=== PATIENT | female | born 1950 | race Caucasian/White ===

== ENCOUNTER → 2022-02-27 | Outpatient (CLI) | payer MEDICARE, MEDICAID | END | disposition home or self-care (01) | LOC: RADPV 13:36 | PROVIDERS: ATTEND Internal Medicine | DX: Z13.820 Encounter for screening for osteoporosis (principal); M81.0 Age-related osteoporosis without current pathological fracture; G80.0 Spastic quadriplegic cerebral palsy | CPT/HCPCS: 77080 ==

== ENCOUNTER → 2022-10-06 | Outpatient (CLI) | payer MEDICARE, MEDICAID | END | disposition home or self-care (01) | LOC: RADMN 09:41 | PROVIDERS: ATTEND Internal Medicine Pulmonary Disease | DX: J32.0 Chronic maxillary sinusitis (principal); J32.3 Chronic sphenoidal sinusitis; J32.1 Chronic frontal sinusitis; G93.89 Other specified disorders of brain | CPT/HCPCS: 70486 ==

== ENCOUNTER 2023-01-06 12:30 | Day surgery (SDC) | payer MEDICARE, MEDICAID ==
[~2023-01-06] VITALS: Ht 152.4 cm; Wt 57.2 kg
[~2023-01-06 12:30] MED LIST: LIDOCAINE/PF 2% 5 ML VIAL IM ONE; PROPOFOL 1% 20 ML VIAL IVP ONE; SODIUM CHLORIDE 0.9% 1,000 ML IV ONE; SODIUM CHLORIDE 0.9% 1,000 ML ONE
== END 2023-01-06 15:35 | disposition home or self-care (01) ==
LOC: SURGERY 12:30
PROVIDERS: ATTEND Internal Medicine Gastroenterology
DX: D50.9 Iron deficiency anemia, unspecified (principal); R11.10 Vomiting, unspecified; R05.9 Cough, unspecified; Z88.8 Allergy status to other drugs, medicaments and biological substances; Z88.0 Allergy status to penicillin; Z88.2 Allergy status to sulfonamides; G80.8 Other cerebral palsy; K21.9 Gastro-esophageal reflux disease without esophagitis; Z98.890 Other specified postprocedural states; Z79.899 Other long term (current) drug therapy; G80.9 Cerebral palsy, unspecified
CPT/HCPCS: 45378; 43235; J2704; J3490; J7030; 88300

== ENCOUNTER 2023-12-20 15:06 | Inpatient (IN) | payer MEDICARE, OTHER ==
[~2023-12-20] VITALS: Ht 121.9 cm; Wt 61.6 kg
[~2023-12-20 15:06] MED LIST changes: +ACET-2247 GT; +ACET650S24 PR; +BISA-186 PR; +BUDE0.5A NEB; +CHOL25TA4 GT; +DENO60DI SQ; +FLUT16SP NASAL; +GUAIF10 PO; +LACT10SO10 GT; +LEVAHFA IH; +LEVE100S7 GT; +LEVO150 GT; -LIDOCAINE/PF 2% 5 ML VIAL IM ONE; +LORA10TA7 GT; +METO-296 GT; +MONT-35 GT; +MULT-1303 GT; +NA P133E8 PR; +NUTR250L67 GT; +OMEP20 GT; +PRAV40TA4 GT; -PROPOFOL 1% 20 ML VIAL IVP ONE; +PROT1PAC2 GT; -SODIUM CHLORIDE 0.9% 1,000 ML IV ONE; -SODIUM CHLORIDE 0.9% 1,000 ML ONE; +XALA2.5OS OU
[2023-12-20] MEDS ORDERED: ZOLPIDEM TARTRATE 5 MG TABLET PO PRN (16:00)
[2023-12-20] MEDS ORDERED: BISACODYL 10 MG RECTAL RECTAL SUPPOSITORY PR PRN (16:00)
[2023-12-20] MEDS ORDERED: ONDANSETRON HCL 4 MG/2 ML VIAL IVP PRN (16:00)
[2023-12-20] MEDS ORDERED: MAGNESIUM HYDROXIDE SUSPENSION 30 ML UDCUP PO PRN (16:00)
[2023-12-20] MEDS ORDERED: ACETAMINOPHEN 325 MG TABLET PO PRN (16:00)
[2023-12-20] MEDS ORDERED: MORPHINE SULFATE 2 MG/ML SYRINGE IVP PRN (16:00)
[2023-12-20] MEDS ORDERED: HYDROCODONE/ACETAMINOPHEN 5-325 MG TABLET PO PRN (16:00)
[2023-12-20] MEDS ORDERED: LEVA1.2542 NEB (16:16)
[2023-12-20 16:30] LABS: BASOPHILS % (AUTO) 0.3 % (0.0-2.0); HEMATOCRIT 37.1 % (36-46); HEMOGLOBIN 12.2 g/dL (12.0-16.0); LYMPHOCYTES # (AUTO) 0.7 K/uL (1.0-4.8); LYMPHOCYTES % (AUTO) 13.2 % (22.0-44.0); MEAN CORPUSCULAR HEMOGLOBIN 30.9 pg (26.0-34.0); MEAN CORPUSCULAR HGB CONC 32.9 G/dL (31.0-37.0); MEAN CORPUSCULAR VOLUME 94 fL (80-100); MONOCYTES # (AUTO) 0.6 K/uL (0.1-1.0); MONOCYTES % (AUTO) 10.8 % (2.0-9.0); NEUTROPHILS # (AUTO) 3.9 K/uL (1.8-7.7); NEUTROPHILS % (AUTO) 72.7 % (40.0-70.0); PLATELET COUNT (AUTO) 218 K/uL (150-450); RED BLOOD CELL COUNT(AUTO) 3.95 MIL/uL (4.00-5.20); RED CELL DISTRIBUTION WIDTH 13.3 % (11.5-14.5); WHITE BLOOD COUNT (AUTO) 5.4 K/uL (4.5-11.0)
[2023-12-20] MEDS: LevETIRAcetam 1,000 MG in DEXTROSE 5%-WATER 100 ML IV SCH (16:33)
[2023-12-20 16:39] LABS: ANION GAP 4 mmol/L (8-16); CALCIUM, TOTAL 10.1 mg/dL (8.8-10.5); CARBON DIOXIDE 34 mmol/L (22-29); CHLORIDE 100 mmol/L (98-107); CREATININE 0.31 mg/dL (0.60-1.30); GLOMERULAR FILTR. RATE CALC > 60 mL/min (>60); GLUCOSE,RANDOM 84 mg/dL (70-110); SODIUM SERUM 138 mmol/L (136-145); UREA NITROGEN, BLOOD 18 mg/dL (7-18)
[2023-12-20 16:42] LABS: COVID AG,FIA SOURCE NASAL SWAB
[2023-12-20 16:48] LABS: TROPONIN I-HIGH SENSITIVITY Less Than 4 ng/L (<51)
[2023-12-20 16:56] LABS: B-TYPE NATRIURETIC PEPTIDE 6 pg/mL (0-100)
[2023-12-20 17:18] LABS: SARS-COV2 (COVID) ANTIGEN,FIA Negative (Negative)
[2023-12-20 19:20] VITALS: BP 127/79; PULSE 83; RESP 18; TEMP 98.1
[2023-12-20 19:52] VITALS: BP 130/82; PULSE 73; RESP 18; TEMP 98.1
[2023-12-20] MEDS: DOCUSATE SODIUM 100 MG CAPSULE PO SCH (21:00)
[2023-12-20] MEDS ORDERED: SODIUM CHLORIDE 0.9% 1,000 ML IV SCH (22:45)
[2023-12-20] MEDS: SODIUM CHLORIDE 0.9% 1,000 ML IV SCH (23:18)
[2023-12-21 04:12] VITALS: BP 131/64; PULSE 75; RESP 18; TEMP 98.2
[2023-12-21 07:19] LABS: BASOPHILS % (AUTO) 0.3 % (0.0-2.0); EOSINOPHILS % (AUTO) 4.6 % (1.0-6.0); HEMATOCRIT 33.8 % (36-46); HEMOGLOBIN 11.3 g/dL (12.0-16.0); LYMPHOCYTES # (AUTO) 1.1 K/uL (1.0-4.8); LYMPHOCYTES % (AUTO) 17.2 % (22.0-44.0); MEAN CORPUSCULAR HEMOGLOBIN 31.3 pg (26.0-34.0); MEAN CORPUSCULAR HGB CONC 33.4 G/dL (31.0-37.0); MEAN CORPUSCULAR VOLUME 94 fL (80-100); MONOCYTES # (AUTO) 0.8 K/uL (0.1-1.0); MONOCYTES % (AUTO) 11.7 % (2.0-9.0); NEUTROPHILS # (AUTO) 4.3 K/uL (1.8-7.7); NEUTROPHILS % (AUTO) 66.2 % (40.0-70.0); RED CELL DISTRIBUTION WIDTH 13.5 % (11.5-14.5); WHITE BLOOD COUNT (AUTO) 6.5 K/uL (4.5-11.0)
[2023-12-21 07:37] LABS: ANION GAP 6 mmol/L (8-16); CARBON DIOXIDE 30 mmol/L (22-29); CHLORIDE 102 mmol/L (98-107); CREATININE 0.28 mg/dL (0.60-1.30); GLUCOSE,RANDOM 91 mg/dL (70-110); POTASSIUM 4.1 mmol/L (3.5-5.1); SODIUM SERUM 138 mmol/L (136-145); UREA NITROGEN, BLOOD 13 mg/dL (7-18)
[2023-12-21 07:38] LABS: CALCIUM, TOTAL 9.2 mg/dL (8.8-10.5); GLOMERULAR FILTR. RATE CALC > 60 mL/min (>60)
[2023-12-21 08:10] VITALS: BP 128/68; PULSE 76; RESP 18; TEMP 98
[2023-12-21 08:38] LABS: PLATELET COUNT (AUTO) 179 K/uL (150-450)
[2023-12-21] MEDS: PANTOPRAZOLE SODIUM 40 MG DR TABLET PO SCH (09:08)
[2023-12-21 15:28] VITALS: BP 132/70; PULSE 78; RESP 18; TEMP 98.7
== END 2023-12-21 20:45 | disposition home or self-care (01) | DRG 394 ==
LOC: EMS 15:06 → EDH 16:43 → 6S 17:10
PROVIDERS: ADMIT Internal Medicine; ATTEND Internal Medicine
DX: K94.23 Gastrostomy malfunction (principal); Z68.41 Body mass index [BMI] 40.0-44.9, adult; F03.90 Unspecified dementia, unspecified severity, without behavioral disturbance, psychotic disturbance, mood disturbance, and anxiety; E86.0 Dehydration; I10 Essential (primary) hypertension; R13.10 Dysphagia, unspecified; E78.5 Hyperlipidemia, unspecified; E66.01 Morbid (severe) obesity due to excess calories; Z20.822 Contact with and (suspected) exposure to COVID-19; R62.7 Adult failure to thrive; K21.9 Gastro-esophageal reflux disease without esophagitis; Y83.8 Other surgical procedures as the cause of abnormal reaction of the patient, or of later complication, without mention of misadventure at the time of the procedure; Y82.8 Other medical devices associated with adverse incidents; G40.909 Epilepsy, unspecified, not intractable, without status epilepticus; Y92.89 Other specified places as the place of occurrence of the external cause; Z88.0 Allergy status to penicillin; Z88.2 Allergy status to sulfonamides; Z88.3 Allergy status to other anti-infective agents; Z79.899 Other long term (current) drug therapy
CPT/HCPCS: 80048; 83880; 84484; 85025; 93005; 94799; 99285; J0712; J7030; J7060

== ENCOUNTER 2024-04-25 11:45 | Inpatient (IN) | payer MEDICARE, OTHER ==
[~2024-04-25] VITALS: Ht 154.9 cm; Wt 65.5 kg
[~2024-04-25 11:45] MED LIST changes: +GUAI100L96 PO; -GUAIF10 PO; +LEVA1.2542 NEB; -LEVAHFA IH
[2024-04-25 13:57] LABS: BASOPHILS % (AUTO) 0.3 % (0.0-2.0); EOSINOPHILS % (AUTO) 2.3 % (1.0-6.0); HEMATOCRIT 37.1 % (36-46); HEMOGLOBIN 12.3 g/dL (12.0-16.0); LYMPHOCYTES # (AUTO) 0.8 K/uL (1.0-4.8); MEAN CORPUSCULAR HEMOGLOBIN 30.6 pg (26.0-34.0); MEAN CORPUSCULAR HGB CONC 33.2 G/dL (31.0-37.0); MEAN CORPUSCULAR VOLUME 92 fL (80-100); MONOCYTES # (AUTO) 0.5 K/uL (0.1-1.0); MONOCYTES % (AUTO) 10.6 % (2.0-9.0); NEUTROPHILS # (AUTO) 3.5 K/uL (1.8-7.7); NEUTROPHILS % (AUTO) 70.8 % (40.0-70.0); PLATELET COUNT (AUTO) 212 K/uL (150-450); RED BLOOD CELL COUNT(AUTO) 4.02 MIL/uL (4.00-5.20); RED CELL DISTRIBUTION WIDTH 13.9 % (11.5-14.5)
[2024-04-25 14:02] LABS: ANION GAP 7 mmol/L (8-16); CALCIUM, TOTAL 9.1 mg/dL (8.8-10.5); CARBON DIOXIDE 31 mmol/L (22-29); CHLORIDE 98 mmol/L (98-107); CREATININE 0.23 mg/dL (0.60-1.30); GLOMERULAR FILTR. RATE CALC > 60 mL/min (>60); GLUCOSE,RANDOM 82 mg/dL (70-110); POTASSIUM 5.3 mmol/L (3.5-5.1); SODIUM SERUM 135 mmol/L (136-145); UREA NITROGEN, BLOOD 22 mg/dL (7-18)
[2024-04-25] MEDS ORDERED: HYDROCODONE/ACETAMINOPHEN 5-325 MG TABLET GT PRN (14:45)
[2024-04-25] MEDS ORDERED: BISACODYL 10 MG RECTAL RECTAL SUPPOSITORY PR PRN (14:45)
[2024-04-25] MEDS ORDERED: ONDANSETRON HCL 4 MG/2 ML VIAL IVP PRN (14:45)
[2024-04-25] MEDS ORDERED: MAGNESIUM HYDROXIDE SUSPENSION 30 ML UDCUP GT PRN (14:45)
[2024-04-25] MEDS ORDERED: ZOLPIDEM TARTRATE 5 MG TABLET GT PRN (14:45)
[2024-04-25] MEDS ORDERED: IPRATROPIUM BROMIDE 0.5 MG/2.5 ML NEB SOLUTION NEB PRN (14:45)
[2024-04-25] MEDS ORDERED: ALBUTEROL SULFATE 2.5 MG/0.5 ML NEB SOLUTION NEB PRN (14:45)
[2024-04-25] MEDS ORDERED: LACTULOSE 20 GM/30 ML SOLUTION UDCUP GT PRN (14:45)
[2024-04-25] MEDS ORDERED: ACETAMINOPHEN 650 MG/20.3 ML SOLUTION UDCUP GT PRN (15:00)
[2024-04-25 16:04] VITALS: BP 139/63; PULSE 83; RESP 19; TEMP 97.3
[2024-04-25] MEDS: HEPARIN SODIUM,PORCINE 5,000 UNITS/ML VIAL SQ SCH (16:47)
[2024-04-25 20:00] VITALS: BP 106/65; PULSE 87; RESP 18; TEMP 97.9; O2SAT 93
[2024-04-25] MEDS: METOCLOPRAMIDE HCL 10 MG TABLET GT SCH (21:00)
[2024-04-25] MEDS ORDERED: OMEPRAZOLE 20 MG CAPSULE GT SCH (21:00)
[2024-04-25] MEDS: LevETIRAcetam 100 MG/ML 5 ML SOLUTION UDCUP GT SCH (21:00)
[2024-04-25] MEDS: DOCUSATE SODIUM 100 MG/10 ML LIQUID UDCUP GT SCH (21:00)
[2024-04-25] MEDS: DEXTROSE 5%-0.45% SODIUM CHL 1,000 ML IV SCH (21:19)
[2024-04-25] MEDS: LATANOPROST 0.005% 2.5 ML OPHTHALMIC SOLUTION OU SCH (22:07)
[2024-04-25] MEDS: FLUTICASONE PROPIONATE 50 MCG/SPRAY 16 GM NASAL SPRAY NASAL SCH (22:07)
[2024-04-26 04:07] VITALS: BP 102/66; PULSE 88; RESP 18; TEMP 97.6; O2SAT 96
[2024-04-26 05:13] LABS: APPEARANCE,URINE HAZY (CLEAR); BILIRUBIN,URINE NEGATIVE (NEGATIVE); COLOR,URINE YELLOW (YELLOW); GLUCOSE, URINE (UA) NEGATIVE (NEGATIVE); KETONES,URINE NEGATIVE (NEGATIVE); LEUKOCYTE ESTERASE ,URINE SMALL (NEGATIVE); NITRATE,URINE NEGATIVE (NEGATIVE); OCCULT BLOOD,URINE NEGATIVE (NEGATIVE); PH,URINE 8.5 (5.0-8.0); PROTEIN,URINE 30-70 mg/dL (NEGATIVE); SPECIFIC GRAVITIY, URINE 1.023 (1.003-1.030); UROBILINOGEN,URINE <=1.0 mg/dL (<=1.0)
[2024-04-26 05:20] LABS: BACTERIA,URINE Few /HPF (None Seen); SQUAMOUS EPITHELIAL CELL,UR Few /LPF (None Seen); WBC,URINE None Seen /HPF (0-5)
[2024-04-26] MEDS: LEVOTHYROXINE SODIUM 150 MCG TABLET GT SCH (06:30)
[2024-04-26 08:00] VITALS: BP 94/59; PULSE 59; RESP 18; TEMP 97.5; O2SAT 95
[2024-04-26] MEDS: LORATADINE 10 MG TABLET GT SCH (09:00)
[2024-04-26] MEDS: PRAVASTATIN SODIUM 40 MG TABLET GT SCH (09:00)
[2024-04-26] MEDS: PANTOPRAZOLE SODIUM 40 MG/VIAL IVP SCH (09:28)
[2024-04-26] MEDS ORDERED: IOHEXOL 300 MG/ML 50 ML VIAL ONE (10:32)
[2024-04-26] MEDS ORDERED: MIDAZOLAM HCL 2 MG/2 ML VIAL ONE (10:45)
[2024-04-26] MEDS ORDERED: FentaNYL CITRATE PF 100 MCG/2 ML VIAL ONE (10:45)
[2024-04-26] MEDS: IOHEXOL 300 MG/ML 50 ML VIAL IARTER ONE (11:03)
[2024-04-26 11:04] VITALS: BP 121/67; PULSE 94
[2024-04-26 16:40] VITALS: BP 142/86; PULSE 72; RESP 18; TEMP 97.4; O2SAT 98
[2024-04-26 21:14] VITALS: BP 117/66; PULSE 78; RESP 18; TEMP 97.5; O2SAT 93
[2024-04-27] MEDS: MORPHINE SULFATE 2 MG/ML SYRINGE IVP PRN (02:33)
[2024-04-27 06:26] VITALS: BP 134/66; PULSE 70; RESP 20; TEMP 97.6; O2SAT 98
[2024-04-27 07:56] VITALS: BP 123/75; PULSE 82; RESP 19; TEMP 97.8; O2SAT 96
[2024-04-27 12:31] LABS: BASOPHILS % (AUTO) 0.2 % (0.0-2.0); EOSINOPHILS % (AUTO) 3.8 % (1.0-6.0); HEMATOCRIT 36.2 % (36-46); HEMOGLOBIN 11.8 g/dL (12.0-16.0); LYMPHOCYTES # (AUTO) 0.7 K/uL (1.0-4.8); LYMPHOCYTES % (AUTO) 22.6 % (22.0-44.0); MEAN CORPUSCULAR HEMOGLOBIN 30.7 pg (26.0-34.0); MEAN CORPUSCULAR HGB CONC 32.5 G/dL (31.0-37.0); MEAN CORPUSCULAR VOLUME 95 fL (80-100); MONOCYTES # (AUTO) 0.4 K/uL (0.1-1.0); MONOCYTES % (AUTO) 12.6 % (2.0-9.0); NEUTROPHILS # (AUTO) 1.9 K/uL (1.8-7.7); NEUTROPHILS % (AUTO) 60.8 % (40.0-70.0); PLATELET COUNT (AUTO) 146 K/uL (150-450); RED BLOOD CELL COUNT(AUTO) 3.83 MIL/uL (4.00-5.20); RED CELL DISTRIBUTION WIDTH 14.2 % (11.5-14.5); WHITE BLOOD COUNT (AUTO) 3.1 K/uL (4.5-11.0)
[2024-04-27 12:43] LABS: ANION GAP 7 mmol/L (8-16); CALCIUM, TOTAL 8.3 mg/dL (8.8-10.5); CARBON DIOXIDE 26 mmol/L (22-29); CHLORIDE 101 mmol/L (98-107); CREATININE 0.33 mg/dL (0.60-1.30); GLOMERULAR FILTR. RATE CALC > 60 mL/min (>60); GLUCOSE,RANDOM 126 mg/dL (70-110); POTASSIUM 4.2 mmol/L (3.5-5.1); SODIUM SERUM 134 mmol/L (136-145); UREA NITROGEN, BLOOD 9 mg/dL (7-18)
[2024-04-27 12:49] LABS: ALANINE AMINOTRANSFERASE 37 U/L (12-78); ALBUMIN 2.5 g/dL (3.4-5.0); ALKALINE PHOSPHATASE 86 U/L (46-116); ASPARTATE AMINOTRANSFERASE 28 U/L (15-37); BILIRUBIN,TOTAL 0.3 mg/dL (0.1-1.0)
== END 2024-04-27 14:15 | disposition home or self-care (01) | DRG 393 ==
LOC: EMS 11:45 → EDH 14:34 → 4E 15:35
PROVIDERS: ADMIT Hospitalist; ATTEND Hospitalist
PROC: 0D2DXUZ Change Feeding Device in Lower Intestinal Tract, External Approach (ICD-10-PCS; principal; 2024-04-26)
DX: K94.23 Gastrostomy malfunction (principal); G82.50 Quadriplegia, unspecified; E03.9 Hypothyroidism, unspecified; D64.9 Anemia, unspecified; E78.5 Hyperlipidemia, unspecified; K21.9 Gastro-esophageal reflux disease without esophagitis; G40.A09 Absence epileptic syndrome, not intractable, without status epilepticus; M81.0 Age-related osteoporosis without current pathological fracture; J45.909 Unspecified asthma, uncomplicated; H35.9 Unspecified retinal disorder; E87.5 Hyperkalemia; E86.0 Dehydration; F03.90 Unspecified dementia, unspecified severity, without behavioral disturbance, psychotic disturbance, mood disturbance, and anxiety; I10 Essential (primary) hypertension; Z88.0 Allergy status to penicillin; Z88.2 Allergy status to sulfonamides; Z88.3 Allergy status to other anti-infective agents
CPT/HCPCS: 36245; 49450; 76000; 80048; 80053; 81001; 85025; 87081; 99285; C9113; G0378; J1644; J2250; J2270; J3010; Q9967; 36415-L1; 36415-TC

== ENCOUNTER 2024-07-26 08:35 | Inpatient (IN) | payer MEDICARE, OTHER ==
[~2024-07-26] VITALS: Ht 147.3 cm; Wt 65.7 kg
[~2024-07-26 08:35] MED LIST changes: -ACET650S24 PR; -BISA-186 PR; -PROT1PAC2 GT
[2024-07-26 10:09] LABS: ANION GAP 2 mmol/L (8-16); CALCIUM, TOTAL 9.3 mg/dL (8.8-10.5); CARBON DIOXIDE 30 mmol/L (22-29); CHLORIDE 101 mmol/L (98-107); CREATININE 0.39 mg/dL (0.60-1.30); GLOMERULAR FILTR. RATE CALC > 60 mL/min (>60); GLUCOSE,RANDOM 103 mg/dL (70-110); POTASSIUM 4.8 mmol/L (3.5-5.1); SODIUM SERUM 133 mmol/L (136-145); UREA NITROGEN, BLOOD 18 mg/dL (7-18)
[2024-07-26 10:20] LABS: PROTHROMBIN TIME 10.2 SEC (9.4-11.6)
[2024-07-26 10:51] LABS: BASOPHILS % (AUTO) 0.4 % (0.0-2.0); EOSINOPHILS % (AUTO) 2.8 % (1.0-6.0); HEMATOCRIT 37.2 % (36-46); HEMOGLOBIN 12.1 g/dL (12.0-16.0); LYMPHOCYTES # (AUTO) 1.1 K/uL (1.0-4.8); LYMPHOCYTES % (AUTO) 23.5 % (22.0-44.0); MEAN CORPUSCULAR HEMOGLOBIN 30.1 pg (26.0-34.0); MEAN CORPUSCULAR HGB CONC 32.7 G/dL (31.0-37.0); MEAN CORPUSCULAR VOLUME 92 fL (80-100); MONOCYTES # (AUTO) 0.7 K/uL (0.1-1.0); MONOCYTES % (AUTO) 15.5 % (2.0-9.0); NEUTROPHILS # (AUTO) 2.8 K/uL (1.8-7.7); NEUTROPHILS % (AUTO) 57.8 % (40.0-70.0); PLATELET COUNT (AUTO) 201 K/uL (150-450); RED BLOOD CELL COUNT(AUTO) 4.04 MIL/uL (4.00-5.20); RED CELL DISTRIBUTION WIDTH 13.8 % (11.5-14.5); WHITE BLOOD COUNT (AUTO) 4.8 K/uL (4.5-11.0)
[2024-07-26] MEDS ORDERED: PROT1PAC2 GT (11:25)
[2024-07-26] MEDS ORDERED: ASCO500 GT (11:25)
[2024-07-26] MEDS: ALBUTEROL SULFATE 2.5 MG/0.5 ML NEB SOLUTION NEB ONE (13:24)
[2024-07-26] MEDS: IPRATROPIUM BROMIDE 0.5 MG/2.5 ML NEB SOLUTION NEB ONE (13:24)
[2024-07-26 13:25] VITALS: PULSE 77; RESP 20; O2SAT 100; O2SAT 99
[2024-07-26 13:40] VITALS: PULSE 76; RESP 20; O2SAT 100
[2024-07-26 16:15] VITALS: BP 114/70; PULSE 74; RESP 19; TEMP 97.2; O2SAT 99
[2024-07-26 19:16] VITALS: BP 129/85; PULSE 100; RESP 20; TEMP 97.7; O2SAT 100
[2024-07-26 19:40] VITALS: BP 136/92; PULSE 62; RESP 20; TEMP 97.7; O2SAT 95
[2024-07-26] MEDS: DEXTROSE 5%-0.45% SODIUM CHL 1,000 ML IV SCH (19:59)
[2024-07-26] MEDS: LevETIRAcetam 1,000 MG in DEXTROSE 5%-WATER 100 ML IV SCH (20:00)
[2024-07-26] MEDS ORDERED: SODIUM CHLORIDE 0.9% 500 ML IV ONE (20:14)
[2024-07-26] MEDS: LATANOPROST 0.005% 2.5 ML OPHTHALMIC SOLUTION OU SCH (23:47)
[2024-07-27 04:17] VITALS: BP 106/56; PULSE 76; RESP 18; TEMP 97.8; O2SAT 94
[2024-07-27 08:10] VITALS: BP 124/77; PULSE 75; RESP 18; TEMP 97.1; O2SAT 97
[2024-07-27] MEDS: LEVOTHYROXINE SODIUM 100 MCG VIAL IVP SCH (09:02)
[2024-07-27 15:10] VITALS: BP 112/75; PULSE 74; RESP 18; TEMP 96.2; O2SAT 94
[2024-07-27] MEDS: *CLINICAL-PERIPHERAL PARENTERAL NUTRITION DOSING CLINICAL ONE (16:56)
[2024-07-27 20:16] VITALS: BP 130/74; PULSE 72; RESP 18; TEMP 97.6; O2SAT 94
[2024-07-27] MEDS: PPN SOLUTION 1 EA, SODIUM CHLORIDE 80 MEQ, SODIUM PHOS,M-BASIC-D-BASIC 20 MEQ, POTASSIU... IV SCH (23:19)
[2024-07-28 04:14] VITALS: BP 115/71; PULSE 66; RESP 18; TEMP 98.7; O2SAT 100
[2024-07-28 08:16] VITALS: BP 120/72; PULSE 72; RESP 19; TEMP 98; O2SAT 100
[2024-07-28 14:54] LABS: ALANINE AMINOTRANSFERASE 32 U/L (12-78); ALBUMIN 2.5 g/dL (3.4-5.0); ALKALINE PHOSPHATASE 82 U/L (46-116); ANION GAP 8 mmol/L (8-16); ASPARTATE AMINOTRANSFERASE 25 U/L (15-37); BILIRUBIN,TOTAL 0.2 mg/dL (0.1-1.0); CALCIUM, TOTAL 8.2 mg/dL (8.8-10.5); CARBON DIOXIDE 24 mmol/L (22-29); CHLORIDE 103 mmol/L (98-107); CREATININE 0.28 mg/dL (0.60-1.30); GLOMERULAR FILTR. RATE CALC > 60 mL/min (>60); GLUCOSE,RANDOM 114 mg/dL (70-110); PHOSPHORUS 2.5 mg/dL (2.5-4.9); POTASSIUM 4.9 mmol/L (3.5-5.1); SODIUM SERUM 135 mmol/L (136-145); TOTAL PROTEIN, SERUM 6.4 g/dL (6.4-8.2); UREA NITROGEN, BLOOD 16 mg/dL (7-18)
[2024-07-28 15:58] VITALS: BP 118/70; PULSE 76; RESP 18; TEMP 98; O2SAT 100
[2024-07-28 19:26] VITALS: BP 143/74; PULSE 56; RESP 20; TEMP 97.5; O2SAT 97
[2024-07-28] MEDS: PPN SOLUTION 1 EA, SODIUM CHLORIDE 70 MEQ, SODIUM PHOS,M-BASIC-D-BASIC 30 MEQ, POTASSIU... IV SCH (23:04)
[2024-07-29 03:34] VITALS: BP 105/69; PULSE 79; RESP 18; TEMP 97.9; O2SAT 98
[2024-07-29 08:50] VITALS: BP 113/88; PULSE 75; RESP 18; TEMP 96.5; O2SAT 96
[2024-07-29 09:02] LABS: ALANINE AMINOTRANSFERASE 40 U/L (12-78); ALKALINE PHOSPHATASE 94 U/L (46-116); ANION GAP 6 mmol/L (8-16); ASPARTATE AMINOTRANSFERASE 27 U/L (15-37); BILIRUBIN,TOTAL 0.3 mg/dL (0.1-1.0); CARBON DIOXIDE 26 mmol/L (22-29); CHLORIDE 104 mmol/L (98-107); CREATININE 0.33 mg/dL (0.60-1.30); GLOMERULAR FILTR. RATE CALC > 60 mL/min (>60); GLUCOSE,RANDOM 99 mg/dL (70-110); PHOSPHORUS 2.8 mg/dL (2.5-4.9); POTASSIUM 5.2 mmol/L (3.5-5.1); SODIUM SERUM 136 mmol/L (136-145); TOTAL PROTEIN, SERUM 7.4 g/dL (6.4-8.2); UREA NITROGEN, BLOOD 21 mg/dL (7-18)
[2024-07-29 15:41] VITALS: BP 132/83; PULSE 77; RESP 18; TEMP 96.7; O2SAT 96
[2024-07-29 19:30] VITALS: BP 112/63; PULSE 90; RESP 18; TEMP 97.7; O2SAT 98
[2024-07-29] MEDS: [UNRECOGNIZED DRUG - OTHER] IV SCH (22:36)
[2024-07-29] MEDS: SODIUM PHOS M BASIC D BASIC IV SCH (22:36)
[2024-07-29] MEDS: PPN IV SCH (22:36)
[2024-07-29] MEDS: SODIUM CHLORIDE IV SCH (22:36)
[2024-07-30 04:45] VITALS: BP 140/80; PULSE 86; RESP 18; TEMP 97.7; O2SAT 96
[2024-07-30 07:38] VITALS: BP 129/84; PULSE 91; RESP 20; TEMP 97.7; O2SAT 99
[2024-07-30 08:25] LABS: ANION GAP 6 mmol/L (8-16); CALCIUM, TOTAL 8.8 mg/dL (8.8-10.5); CARBON DIOXIDE 27 mmol/L (22-29); CHLORIDE 101 mmol/L (98-107); GLOMERULAR FILTR. RATE CALC > 60 mL/min (>60); GLUCOSE,RANDOM 101 mg/dL (70-110); PHOSPHORUS 2.5 mg/dL (2.5-4.9); SODIUM SERUM 134 mmol/L (136-145); UREA NITROGEN, BLOOD 24 mg/dL (7-18)
[2024-07-30 15:57] VITALS: BP 139/76; PULSE 80; RESP 20; TEMP 97.5; O2SAT 100
[2024-07-30 17:32] LABS: BASOPHILS % (AUTO) 0.5 % (0.0-2.0); EOSINOPHILS % (AUTO) 1.2 % (1.0-6.0); HEMATOCRIT 36.6 % (36-46); HEMOGLOBIN 11.8 g/dL (12.0-16.0); LYMPHOCYTES # (AUTO) 0.9 K/uL (1.0-4.8); LYMPHOCYTES % (AUTO) 13.9 % (22.0-44.0); MEAN CORPUSCULAR HEMOGLOBIN 29.6 pg (26.0-34.0); MEAN CORPUSCULAR HGB CONC 32.2 G/dL (31.0-37.0); MEAN CORPUSCULAR VOLUME 92 fL (80-100); MONOCYTES # (AUTO) 0.7 K/uL (0.1-1.0); MONOCYTES % (AUTO) 10.4 % (2.0-9.0); NEUTROPHILS # (AUTO) 4.8 K/uL (1.8-7.7); PLATELET COUNT (AUTO) 234 K/uL (150-450); RED BLOOD CELL COUNT(AUTO) 3.98 MIL/uL (4.00-5.20); WHITE BLOOD COUNT (AUTO) 6.4 K/uL (4.5-11.0)
[2024-07-30 20:11] VITALS: BP 110/71; PULSE 65; RESP 18; TEMP 96.7; O2SAT 100
[2024-07-30] MEDS: PPN IV SCH (22:08)
[2024-07-30] MEDS: SODIUM CHLORIDE IV SCH (22:08)
[2024-07-30] MEDS: [UNRECOGNIZED DRUG - OTHER] IV SCH (22:08)
[2024-07-30] MEDS: SODIUM PHOS M BASIC D BASIC IV SCH (22:08)
[2024-07-31 00:11] LABS: GLUCOMETER DEV NAME(LOC) 6N.2B; GLUCOSE,POINT OF CARE 102 MG/DL (70-110)
[2024-07-31 04:40] VITALS: BP 128/68; PULSE 80; RESP 18; TEMP 97.5; O2SAT 95
[2024-07-31 08:10] VITALS: BP 129/77; PULSE 88; RESP 18; TEMP 96.3; O2SAT 100
[2024-07-31 09:05] LABS: ANION GAP 5 mmol/L (8-16); CALCIUM, TOTAL 8.6 mg/dL (8.8-10.5); CARBON DIOXIDE 28 mmol/L (22-29); CHLORIDE 101 mmol/L (98-107); CREATININE 0.29 mg/dL (0.60-1.30); GLOMERULAR FILTR. RATE CALC > 60 mL/min (>60); GLUCOSE,RANDOM 119 mg/dL (70-110); PHOSPHORUS 2.9 mg/dL (2.5-4.9); POTASSIUM 3.6 mmol/L (3.5-5.1); SODIUM SERUM 134 mmol/L (136-145); UREA NITROGEN, BLOOD 23 mg/dL (7-18)
[2024-07-31 15:53] VITALS: BP 117/72; PULSE 81; RESP 18; TEMP 96.4; O2SAT 97
[2024-07-31 19:33] VITALS: BP 107/65; PULSE 60; RESP 18; TEMP 97.6; O2SAT 100
[2024-07-31] MEDS: PPN IV SCH (22:31)
[2024-07-31] MEDS: [UNRECOGNIZED DRUG - OTHER] IV SCH (22:31)
[2024-07-31] MEDS: SODIUM CHLORIDE IV SCH (22:31)
[2024-07-31] MEDS: SODIUM PHOS M BASIC D BASIC IV SCH (22:31)
[2024-08-01 04:45] VITALS: BP 127/66; PULSE 74; RESP 18; TEMP 97.6; O2SAT 99
[2024-08-01 07:39] VITALS: BP 120/70; PULSE 78; RESP 17; TEMP 96.4; O2SAT 92
[2024-08-01 08:12] LABS: ALANINE AMINOTRANSFERASE 30 U/L (12-78); ALBUMIN 2.2 g/dL (3.4-5.0); ALKALINE PHOSPHATASE 78 U/L (46-116); ANION GAP 6 mmol/L (8-16); ASPARTATE AMINOTRANSFERASE 18 U/L (15-37); BILIRUBIN,TOTAL 0.2 mg/dL (0.1-1.0); CALCIUM, TOTAL 8.4 mg/dL (8.8-10.5); CARBON DIOXIDE 29 mmol/L (22-29); CHLORIDE 104 mmol/L (98-107); CREATININE 0.27 mg/dL (0.60-1.30); GLOMERULAR FILTR. RATE CALC > 60 mL/min (>60); GLUCOSE,RANDOM 109 mg/dL (70-110); PHOSPHORUS 2.9 mg/dL (2.5-4.9); POTASSIUM 3.5 mmol/L (3.5-5.1); SODIUM SERUM 139 mmol/L (136-145); TOTAL PROTEIN, SERUM 6.1 g/dL (6.4-8.2); UREA NITROGEN, BLOOD 21 mg/dL (7-18)
[2024-08-01] MEDS ORDERED: IOHEXOL 300 MG/ML 50 ML VIAL ONE (09:54)
[2024-08-01 09:55] VITALS: BP 123/62; PULSE 83
[2024-08-01] MEDS ORDERED: LIDOCAINE 2% VISCOUS 15 ML SOLUTION UDCUP ONE (10:20)
[2024-08-01 10:25] VITALS: BP 148/87; PULSE 95
[2024-08-01] MEDS: IOHEXOL 300 MG/ML 50 ML VIAL ICOR ONE (10:32)
[2024-08-01] MEDS ORDERED: LACT10SO85 PO (13:21)
[2024-08-01] MEDS: NYSTATIN 30 GM OINTMENT TP SCH (15:43)
[2024-08-01 20:34] VITALS: BP 111/64; PULSE 97; RESP 18; TEMP 97.5; O2SAT 95
[2024-08-01] MEDS ORDERED: SODIUM PHOS M BASIC D BASIC IV SCH (22:00)
[2024-08-01] MEDS ORDERED: PPN IV SCH (22:00)
[2024-08-01] MEDS ORDERED: SODIUM CHLORIDE IV SCH (22:00)
[2024-08-01] MEDS ORDERED: [UNRECOGNIZED DRUG - OTHER] IV SCH (22:00)
[2024-08-02 04:15] VITALS: BP 121/65; PULSE 85; RESP 18; TEMP 97.5; O2SAT 99
[2024-08-02 07:48] LABS: ALANINE AMINOTRANSFERASE 33 U/L (12-78); ALBUMIN 2.3 g/dL (3.4-5.0); ALKALINE PHOSPHATASE 85 U/L (46-116); ANION GAP 1 mmol/L (8-16); ASPARTATE AMINOTRANSFERASE 21 U/L (15-37); BILIRUBIN,TOTAL 0.2 mg/dL (0.1-1.0); CALCIUM, TOTAL 8.8 mg/dL (8.8-10.5); CARBON DIOXIDE 31 mmol/L (22-29); CHLORIDE 104 mmol/L (98-107); CREATININE 0.24 mg/dL (0.60-1.30); GLOMERULAR FILTR. RATE CALC > 60 mL/min (>60); GLUCOSE,RANDOM 92 mg/dL (70-110); POTASSIUM 3.7 mmol/L (3.5-5.1); SODIUM SERUM 136 mmol/L (136-145); TOTAL PROTEIN, SERUM 6.1 g/dL (6.4-8.2); UREA NITROGEN, BLOOD 20 mg/dL (7-18)
[2024-08-02 08:03] VITALS: BP 115/71; PULSE 82; RESP 18; TEMP 96.2; O2SAT 99
[2024-08-02 16:05] VITALS: BP 111/87; PULSE 80; RESP 18; TEMP 95.9; O2SAT 100
[2024-08-02 17:41] LABS: GLUCOMETER DEV NAME(LOC) 6N.2B; GLUCOSE,POINT OF CARE 99 MG/DL (70-110)
== END 2024-08-02 18:15 | disposition home or self-care (01) | DRG 393 ==
LOC: EMS 08:47 → EDH 14:01 → 6S 15:46
PROVIDERS: ADMIT Hospitalist; ATTEND Hospitalist
PROC: 05H933Z Insertion of Infusion Device into Right Brachial Vein, Percutaneous Approach (ICD-10-PCS; 2024-07-27)
PROC: B54MZZA Ultrasonography of Right Upper Extremity Veins, Guidance (ICD-10-PCS; 2024-07-27)
PROC: 0DHA3UZ Insertion of Feeding Device into Jejunum, Percutaneous Approach (ICD-10-PCS; principal; 2024-08-01)
PROC: BD16YZZ Fluoroscopy of Upper GI and Small Bowel using Other Contrast (ICD-10-PCS; 2024-08-01)
DX: K94.23 Gastrostomy malfunction (principal); R53.2 Functional quadriplegia; G80.9 Cerebral palsy, unspecified; Y83.8 Other surgical procedures as the cause of abnormal reaction of the patient, or of later complication, without mention of misadventure at the time of the procedure; I10 Essential (primary) hypertension; E03.9 Hypothyroidism, unspecified; E78.00 Pure hypercholesterolemia, unspecified; J45.909 Unspecified asthma, uncomplicated; G40.909 Epilepsy, unspecified, not intractable, without status epilepticus; M81.0 Age-related osteoporosis without current pathological fracture; K21.9 Gastro-esophageal reflux disease without esophagitis; R62.50 Unspecified lack of expected normal physiological development in childhood; Y92.89 Other specified places as the place of occurrence of the external cause; Z79.899 Other long term (current) drug therapy; Z88.0 Allergy status to penicillin; Z88.2 Allergy status to sulfonamides; Z88.3 Allergy status to other anti-infective agents; Z88.8 Allergy status to other drugs, medicaments and biological substances
CPT/HCPCS: 36245; 36569; 49440; 71045; 76000; 76937; 80048; 80053; 82962; 83735; 84100; 85025; 85610; 85730; 87081; 94640; 99285; J0610; J0712; J3475; J3480; J3490; J7040; J7060; J7070; J7131; Q9967; 36415-L1; 36415-TC; X7700

== ENCOUNTER 2024-12-27 11:14 | Inpatient (IN) | payer MEDICARE, OTHER ==
[~2024-12-27] VITALS: Ht 152.4 cm; Wt 69.6 kg
[~2024-12-27 11:14] MED LIST changes: +ASCO500 GT; -LACT10SO10 GT; +LACT10SO85 PO; -LORA10TA7 GT; -NUTR250L67 GT; +OMEP-148 GT; -OMEP20 GT; +PRAV-59 GT; -PRAV40TA4 GT; +PROT1PAC2 GT
[2024-12-27 12:23] LABS: PLATELET COUNT (AUTO) 215 K/uL (150-450); RED BLOOD CELL COUNT(AUTO) 4.02 MIL/uL (4.00-5.20); RED CELL DISTRIBUTION WIDTH 14.5 % (11.5-14.5); WHITE BLOOD COUNT (AUTO) 4.5 K/uL (4.5-11.0)
[2024-12-27 12:31] LABS: CALCIUM, TOTAL 8.9 mg/dL (8.8-10.5); CREATININE 0.38 mg/dL (0.60-1.30); GLOMERULAR FILTR. RATE CALC > 60 mL/min (>60); GLUCOSE,RANDOM 105 mg/dL (70-110); SODIUM SERUM 140 mmol/L (136-145); UREA NITROGEN, BLOOD 25 mg/dL (7-18)
[2024-12-27] MEDS: SODIUM CHLORIDE 0.9% 1,000 ML IV ONE (12:39)
[2024-12-27 12:40] LABS: LACTIC ACID 1.1 mmol/L (0.4-2.0); TROPONIN I-HIGH SENSITIVITY 4 ng/L (<51)
[2024-12-27 12:56] LABS: APPEARANCE,URINE CLEAR (CLEAR); GLUCOSE, URINE (UA) NEGATIVE (NEGATIVE); LEUKOCYTE ESTERASE ,URINE MODERATE (NEGATIVE); NITRATE,URINE POSITIVE (NEGATIVE); OCCULT BLOOD,URINE NEGATIVE (NEGATIVE); SPECIFIC GRAVITIY, URINE 1.022 (1.003-1.030)
[2024-12-27] MEDS ORDERED: CefTRIAXone 1 GM/DEXTROSE 50 ML IV ONE (13:45)
[2024-12-27] MEDS ORDERED: ONDANSETRON HCL 4 MG/2 ML VIAL IVP PRN (14:45)
[2024-12-27] MEDS ORDERED: MORPHINE SULFATE 2 MG/ML SYRINGE IVP PRN (14:45)
[2024-12-27] MEDS ORDERED: ACETAMINOPHEN 325 MG TABLET PO PRN (14:45)
[2024-12-27] MEDS ORDERED: ZOLPIDEM TARTRATE 5 MG TABLET PO PRN (14:45)
[2024-12-27] MEDS ORDERED: BISACODYL 10 MG RECTAL RECTAL SUPPOSITORY PR PRN (14:45)
[2024-12-27] MEDS ORDERED: HYDROCODONE/ACETAMINOPHEN 5-325 MG TABLET PO PRN (14:45)
[2024-12-27] MEDS ORDERED: MAGNESIUM HYDROXIDE SUSPENSION 30 ML UDCUP PO PRN (14:45)
[2024-12-27 15:25] VITALS: BP 132/74; PULSE 67; RESP 18; TEMP 97.8; O2SAT 95
[2024-12-27] MEDS: LevETIRAcetam 1,000 MG in DEXTROSE 5%-WATER 100 ML IV SCH (15:57)
[2024-12-27] MEDS: CefTRIAXone 1 GM/DEXTROSE 50 ML IV SCH (17:02)
[2024-12-27 19:19] VITALS: BP 120/76; PULSE 67; RESP 18; TEMP 97.3; O2SAT 95
[2024-12-27] MEDS: DOCUSATE SODIUM 100 MG CAPSULE PO SCH (20:32)
[2024-12-27] MEDS: FLUTICASONE PROPIONATE 50 MCG/SPRAY 16 GM NASAL SPRAY NASAL SCH (20:38)
[2024-12-27] MEDS: SODIUM CHLORIDE 0.45% 1,000 ML IV ONE (22:44)
[2024-12-28 05:10] VITALS: BP 121/77; PULSE 64; RESP 18; TEMP 97.4; O2SAT 95
[2024-12-28 07:35] LABS: CALCIUM, TOTAL 8.1 mg/dL (8.8-10.5); CREATININE 0.28 mg/dL (0.60-1.30); GLOMERULAR FILTR. RATE CALC > 60 mL/min (>60); GLUCOSE,RANDOM 92 mg/dL (70-110); PLATELET COUNT (AUTO) 215 K/uL (150-450); RED BLOOD CELL COUNT(AUTO) 3.76 MIL/uL (4.00-5.20); RED CELL DISTRIBUTION WIDTH 14.0 % (11.5-14.5); SODIUM SERUM 141 mmol/L (136-145); UREA NITROGEN, BLOOD 14 mg/dL (7-18); WHITE BLOOD COUNT (AUTO) 4.4 K/uL (4.5-11.0)
[2024-12-28 09:04] VITALS: BP 118/60; PULSE 83; RESP 18; TEMP 97.5; O2SAT 95
[2024-12-28] MEDS: PANTOPRAZOLE SODIUM 40 MG DR TABLET PO SCH (09:29)
[2024-12-28] MEDS ORDERED: SODIUM BICARBONATE 50 MEQ/50 ML VIAL ONE (11:24)
[2024-12-28] MEDS ORDERED: IOHEXOL 300 MG/ML 50 ML VIAL ONE (11:24)
[2024-12-28] MEDS ORDERED: LIDOCAINE/PF 1% 30 ML VIAL ONE (11:24)
[2024-12-28 11:28] VITALS: BP 130/77; PULSE 79
[2024-12-28] MEDS: IOHEXOL 300 MG/ML 50 ML VIAL IARTER ONE (12:01)
[2024-12-28 12:08] VITALS: BP 134/66; PULSE 75
[2024-12-28] MEDS ORDERED: SODIUM CHLORIDE 0.9% 500 ML IV ONE (15:42)
[2024-12-28 17:07] VITALS: BP 122/62; PULSE 78; RESP 19; TEMP 97.6; O2SAT 96
[2024-12-28 19:44] VITALS: BP 119/88; PULSE 77; RESP 18; TEMP 97.3; O2SAT 97
[2024-12-29 03:43] VITALS: BP 125/82; PULSE 85; RESP 18; TEMP 97.7; O2SAT 95
[2024-12-29 06:57] LABS: PLATELET COUNT (AUTO) 216 K/uL (150-450); RED BLOOD CELL COUNT(AUTO) 3.82 MIL/uL (4.00-5.20); RED CELL DISTRIBUTION WIDTH 13.9 % (11.5-14.5); WHITE BLOOD COUNT (AUTO) 3.4 K/uL (4.5-11.0)
[2024-12-29 07:11] LABS: CALCIUM, TOTAL 8.6 mg/dL (8.8-10.5); CREATININE 0.28 mg/dL (0.60-1.30); GLOMERULAR FILTR. RATE CALC > 60 mL/min (>60); GLUCOSE,RANDOM 106 mg/dL (70-110); SODIUM SERUM 143 mmol/L (136-145); UREA NITROGEN, BLOOD 9 mg/dL (7-18)
[2024-12-29 08:06] VITALS: BP 102/62; PULSE 83; RESP 20; TEMP 97.4; O2SAT 95
[2024-12-29] MEDS ORDERED: CEPH-558 PO (08:34)
== END 2024-12-29 11:20 | disposition home or self-care (01) | DRG 393 ==
LOC: EMS 11:31 → EDH 12:25 → EDBEDREQ 12:35 → 6S 15:25 → 4E 12-28 14:52
PROVIDERS: ADMIT Internal Medicine; ATTEND Internal Medicine
PROC: 0D2DXUZ Change Feeding Device in Lower Intestinal Tract, External Approach (ICD-10-PCS; principal; 2024-12-28)
DX: K94.23 Gastrostomy malfunction (principal); G82.50 Quadriplegia, unspecified; N39.0 Urinary tract infection, site not specified; J45.909 Unspecified asthma, uncomplicated; E03.9 Hypothyroidism, unspecified; E78.5 Hyperlipidemia, unspecified; S90.821A Blister (nonthermal), right foot, initial encounter; G40.909 Epilepsy, unspecified, not intractable, without status epilepticus; E78.00 Pure hypercholesterolemia, unspecified; K21.9 Gastro-esophageal reflux disease without esophagitis; F03.90 Unspecified dementia, unspecified severity, without behavioral disturbance, psychotic disturbance, mood disturbance, and anxiety; X58.XXXA Exposure to other specified factors, initial encounter; I10 Essential (primary) hypertension; Y83.8 Other surgical procedures as the cause of abnormal reaction of the patient, or of later complication, without mention of misadventure at the time of the procedure; Y82.8 Other medical devices associated with adverse incidents; Z88.0 Allergy status to penicillin; Z88.2 Allergy status to sulfonamides; Z88.3 Allergy status to other anti-infective agents; Y93.89 Activity, other specified; Y92.89 Other specified places as the place of occurrence of the external cause; Y99.8 Other external cause status
CPT/HCPCS: 49450; 51701; 71045; 76000; 80048; 81001; 83605; 83690; 84484; 85025; 87040; 87077; 87086; 87186; 93005; 99285; G0378; J0696; J0712; J3490; J7030; J7040; J7060; Q9967; 36415-L1; 36415-TC

== ENCOUNTER 2025-02-22 09:59 | Inpatient (IN) | payer MEDICARE, OTHER ==
[~2025-02-22] VITALS: Ht 152.4 cm; Wt 63.6 kg
[~2025-02-22 09:59] MED LIST changes: +CEPH-558 PO
[2025-02-22 11:17] LABS: PLATELET COUNT (AUTO) 243 K/uL (150-450); RED BLOOD CELL COUNT(AUTO) 3.62 MIL/uL (4.00-5.20); RED CELL DISTRIBUTION WIDTH 13.5 % (11.5-14.5); WHITE BLOOD COUNT (AUTO) 3.8 K/uL (4.5-11.0)
[2025-02-22 11:20] LABS: CALCIUM, TOTAL 9.0 mg/dL (8.8-10.5); CREATININE 0.37 mg/dL (0.60-1.30); GLOMERULAR FILTR. RATE CALC > 60 mL/min (>60); GLUCOSE,RANDOM 111 mg/dL (70-110); SODIUM SERUM 137 mmol/L (136-145); UREA NITROGEN, BLOOD 29 mg/dL (7-18)
[2025-02-22 11:27] LABS: ASPARTATE AMINOTRANSFERASE 14.0 U/L (15-37); TOTAL PROTEIN, SERUM 6.4 g/dL (6.4-8.2)
[2025-02-22 14:20] VITALS: BP 116/74; PULSE 52; RESP 19; TEMP 97.7; O2SAT 98
[2025-02-22] MEDS ORDERED: ZOLPIDEM TARTRATE 5 MG TABLET PO PRN (14:30)
[2025-02-22] MEDS ORDERED: ACETAMINOPHEN 325 MG TABLET PO PRN (14:30)
[2025-02-22] MEDS ORDERED: BISACODYL 10 MG RECTAL RECTAL SUPPOSITORY PR PRN (14:30)
[2025-02-22] MEDS ORDERED: HYDROCODONE/ACETAMINOPHEN 5-325 MG TABLET PO PRN (14:30)
[2025-02-22] MEDS ORDERED: ONDANSETRON HCL 4 MG/2 ML VIAL IVP PRN (14:30)
[2025-02-22] MEDS ORDERED: MAGNESIUM HYDROXIDE SUSPENSION 30 ML UDCUP PO PRN (14:30)
[2025-02-22] MEDS ORDERED: PRED-729 PO (16:13)
[2025-02-22] MEDS ORDERED: PRED10TA3 PO (16:13)
[2025-02-22 20:40] VITALS: BP 112/81; PULSE 74; RESP 18; TEMP 97.7; O2SAT 100
[2025-02-22] MEDS: AZITHROMYCIN 500 MG TABLET PO ONE (20:57)
[2025-02-22] MEDS: MONTELUKAST SODIUM 10 MG TABLET GT SCH (20:57)
[2025-02-22] MEDS: OMEPRAZOLE 20 MG CAPSULE GT SCH (20:57)
[2025-02-22] MEDS: LevETIRAcetam 100 MG/ML 5 ML SOLUTION UDCUP GT SCH (20:58)
[2025-02-22] MEDS: METOCLOPRAMIDE HCL 10 MG TABLET GT SCH (20:58)
[2025-02-22] MEDS: FLUTICASONE PROPIONATE 50 MCG/SPRAY 16 GM NASAL SPRAY NASAL SCH (20:59)
[2025-02-22] MEDS: DOCUSATE SODIUM 100 MG CAPSULE PO SCH (21:00)
[2025-02-23 05:27] VITALS: BP 112/77; PULSE 62; RESP 18; TEMP 97.5; O2SAT 95
[2025-02-23] MEDS: LEVOTHYROXINE SODIUM 150 MCG TABLET GT SCH (06:30)
[2025-02-23 08:14] VITALS: BP 118/73; PULSE 57; RESP 18; TEMP 97.5; O2SAT 100
[2025-02-23 08:34] LABS: PLATELET COUNT (AUTO) 221 K/uL (150-450); RED BLOOD CELL COUNT(AUTO) 3.85 MIL/uL (4.00-5.20); RED CELL DISTRIBUTION WIDTH 13.5 % (11.5-14.5); WHITE BLOOD COUNT (AUTO) 3.6 K/uL (4.5-11.0)
[2025-02-23 08:44] LABS: CALCIUM, TOTAL 8.9 mg/dL (8.8-10.5); CREATININE 0.50 mg/dL (0.60-1.30); GLOMERULAR FILTR. RATE CALC > 60 mL/min (>60); GLUCOSE,RANDOM 123 mg/dL (70-110); SODIUM SERUM 140 mmol/L (136-145); UREA NITROGEN, BLOOD 23 mg/dL (7-18)
[2025-02-23] MEDS: PANTOPRAZOLE SODIUM 40 MG DR TABLET PO SCH (09:00)
[2025-02-23] MEDS: PRAVASTATIN SODIUM 40 MG TABLET GT SCH (09:16)
[2025-02-23] MEDS: DEXTROSE 5%-0.45% SODIUM CHL 1,000 ML IV SCH (13:25)
[2025-02-23 15:00] VITALS: BP 121/78; PULSE 59; RESP 18; TEMP 98; O2SAT 99
[2025-02-23] MEDS ORDERED: SODIUM CHLORIDE 0.9% 1,000 ML ONE (15:52)
[2025-02-23 20:16] VITALS: PULSE 66; RESP 18; O2SAT 96
[2025-02-23] MEDS: BUDESONIDE 0.5 MG/2 ML NEB SOLUTION NEB SCH (20:16)
[2025-02-23 20:43] VITALS: BP 109/90; PULSE 59; RESP 18; TEMP 97.5; O2SAT 100
[2025-02-24] VITALS (7 sets, daily range): BP systolic 106–128; BP diastolic 68–82; PULSE 51–78; RESP 16–21; TEMP 97–97.6; O2SAT 94–100
[2025-02-24 07:37] LABS: PLATELET COUNT (AUTO) 202 K/uL (150-450); RED BLOOD CELL COUNT(AUTO) 3.59 MIL/uL (4.00-5.20); RED CELL DISTRIBUTION WIDTH 13.4 % (11.5-14.5); WHITE BLOOD COUNT (AUTO) 3.2 K/uL (4.5-11.0)
[2025-02-24 07:44] LABS: CALCIUM, TOTAL 8.2 mg/dL (8.8-10.5); CREATININE 0.33 mg/dL (0.60-1.30); GLOMERULAR FILTR. RATE CALC > 60 mL/min (>60); GLUCOSE,RANDOM 140 mg/dL (70-110); SODIUM SERUM 139 mmol/L (136-145); UREA NITROGEN, BLOOD 21 mg/dL (7-18)
[2025-02-25] VITALS (8 sets, daily range): BP systolic 111–137; BP diastolic 71–83; PULSE 57–66; RESP 18–22; TEMP 97.1–97.7; O2SAT 96–100
[2025-02-25 08:27] LABS: PLATELET COUNT (AUTO) 184 K/uL (150-450); RED BLOOD CELL COUNT(AUTO) 3.55 MIL/uL (4.00-5.20); RED CELL DISTRIBUTION WIDTH 13.8 % (11.5-14.5); WHITE BLOOD COUNT (AUTO) 2.9 K/uL (4.5-11.0)
[2025-02-25 08:44] LABS: CALCIUM, TOTAL 7.1 mg/dL (8.8-10.5); CREATININE 0.47 mg/dL (0.60-1.30); GLOMERULAR FILTR. RATE CALC > 60 mL/min (>60); SODIUM SERUM 132 mmol/L (136-145); UREA NITROGEN, BLOOD 16 mg/dL (7-18)
[2025-02-25 08:48] LABS: GLUCOSE,RANDOM 598 mg/dL (70-110)
[2025-02-25 11:40] LABS: GLUCOMETER DEV NAME(LOC) 4E.2; GLUCOSE,POINT OF CARE 103 MG/DL (70-110)
[2025-02-25] MEDS: POTASSIUM CHL 10 MEQ/WATER 50 ML IV SCH (13:48)
[2025-02-26] VITALS (9 sets, daily range): BP systolic 116–141; BP diastolic 59–81; PULSE 51–76; RESP 12–22; TEMP 94.1–97.7; O2SAT 97–100
[2025-02-26] MEDS: MORPHINE SULFATE 2 MG/ML SYRINGE IVP PRN (03:51)
[2025-02-26 06:51] LABS: GLUCOMETER DEV NAME(LOC) 4E.2; GLUCOSE,POINT OF CARE 153 MG/DL (70-110)
[2025-02-26 07:03] LABS: CALCIUM, TOTAL 8.6 mg/dL (8.8-10.5); CREATININE 0.31 mg/dL (0.60-1.30); GLOMERULAR FILTR. RATE CALC > 60 mL/min (>60); GLUCOSE,RANDOM 157 mg/dL (70-110); SODIUM SERUM 138 mmol/L (136-145); UREA NITROGEN, BLOOD 18 mg/dL (7-18)
[2025-02-26] MEDS ORDERED: FUROSEMIDE 20 MG/2 ML VIAL IVP ONE (18:00)
[2025-02-26] MEDS: SODIUM ZIRCONIUM CYCLOSILICATE 10 GM POWDER PACKET PO ONE (23:18)
[2025-02-27] VITALS (7 sets, daily range): BP systolic 119–186; BP diastolic 70–94; PULSE 53–73; RESP 18–20; TEMP 97.2–97.8; O2SAT 96–99
[2025-02-27] MEDS ORDERED: LIDOCAINE/PF 2% 5 ML SYRINGE IVP ONE (09:29)
[2025-02-27] MEDS ORDERED: PROPOFOL 1% 20 ML VIAL IVP ONE (09:29)
[2025-02-27] MEDS ORDERED: IOHEXOL 300 MG/ML 50 ML VIAL ONE (10:34)
[2025-02-27] MEDS: IOHEXOL 300 MG/ML 50 ML VIAL IVP ONE (10:46)
== END 2025-02-27 20:05 | disposition home or self-care (01) | DRG 393 ==
LOC: EMS 09:59 → EDH 13:04 → 4E 15:44
PROVIDERS: ADMIT Internal Medicine; ATTEND Internal Medicine
PROC: 0DJ08ZZ Inspection of Upper Intestinal Tract, Via Natural or Artificial Opening Endoscopic (ICD-10-PCS; 2025-02-23)
PROC: 0DHA4UZ Insertion of Feeding Device into Jejunum, Percutaneous Endoscopic Approach (ICD-10-PCS; principal; 2025-02-27)
DX: K94.23 Gastrostomy malfunction (principal); G82.50 Quadriplegia, unspecified; J45.909 Unspecified asthma, uncomplicated; F03.90 Unspecified dementia, unspecified severity, without behavioral disturbance, psychotic disturbance, mood disturbance, and anxiety; I10 Essential (primary) hypertension; E03.9 Hypothyroidism, unspecified; K21.9 Gastro-esophageal reflux disease without esophagitis; R56.9 Unspecified convulsions; E78.00 Pure hypercholesterolemia, unspecified; K22.2 Esophageal obstruction; Z88.0 Allergy status to penicillin; Z88.2 Allergy status to sulfonamides; Z88.3 Allergy status to other anti-infective agents; Z74.01 Bed confinement status
CPT/HCPCS: 36245; 49446; 76000; 80048; 80076; 82271; 82962; 84132; 85025; 85610; 85730; 87081; 94640; 94760; 99285; G0378; J2270; J2704; J3480; J3490; J7030; Q9967; 36415-L1; 36415-TC; J7512; Z7610

== ENCOUNTER 2025-05-21 10:20 | Inpatient (IN) | payer MEDICARE, OTHER ==
[~2025-05-21] VITALS: Ht 142.2 cm; Wt 66.0 kg
[~2025-05-21 10:20] MED LIST changes: -CEPH-558 PO; +ERTA1VIA9 IVP; -LEVA1.2542 NEB; +PRED10TA3 PO
[2025-05-21] MEDS ORDERED: ALEN70TA65 PO (10:48)
[2025-05-21] MEDS ORDERED: BISA-151 PO (10:48)
[2025-05-21 12:22] LABS: PLATELET COUNT (AUTO) 214 K/uL (150-450); RED BLOOD CELL COUNT(AUTO) 3.59 MIL/uL (4.00-5.20); RED CELL DISTRIBUTION WIDTH 14.1 % (11.5-14.5); WHITE BLOOD COUNT (AUTO) 4.2 K/uL (4.5-11.0)
[2025-05-21 12:40] LABS: CALCIUM, TOTAL 9.8 mg/dL (8.8-10.5); CREATININE 0.22 mg/dL (0.60-1.30); GLOMERULAR FILTR. RATE CALC > 60 mL/min (>60); GLUCOSE,RANDOM 86 mg/dL (70-110); SODIUM SERUM 134 mmol/L (136-145); UREA NITROGEN, BLOOD 16 mg/dL (7-18)
[2025-05-21 12:48] LABS: TROPONIN I-HIGH SENSITIVITY 4 ng/L (<51)
[2025-05-21] MEDS ORDERED: HYDROCODONE/ACETAMINOPHEN 5-325 MG TABLET PO PRN (13:45)
[2025-05-21] MEDS ORDERED: ACETAMINOPHEN 325 MG TABLET PO PRN (13:45)
[2025-05-21] MEDS ORDERED: MAGNESIUM HYDROXIDE SUSPENSION 30 ML UDCUP PO PRN (13:45)
[2025-05-21] MEDS ORDERED: ONDANSETRON HCL 4 MG/2 ML VIAL IVP PRN (13:45)
[2025-05-21] MEDS ORDERED: LACTULOSE 20 GM/30 ML SOLUTION UDCUP PO PRN (13:45)
[2025-05-21] MEDS ORDERED: BISACODYL 10 MG RECTAL RECTAL SUPPOSITORY PR PRN (13:45)
[2025-05-21] MEDS ORDERED: BISACODYL 5 MG EC TABLET GT PRN (14:00)
[2025-05-21 15:00] VITALS: BP 129/76; PULSE 72; RESP 18; TEMP 97.3; O2SAT 96
[2025-05-21 16:00] VITALS: BP 127/84; PULSE 66; RESP 19; TEMP 97.7; O2SAT 100
[2025-05-21] MEDS: HEPARIN SODIUM,PORCINE 5,000 UNITS/ML VIAL SQ SCH (17:05)
[2025-05-21] MEDS: METOCLOPRAMIDE HCL 10 MG/10 ML SOLUTION ORAL.SYG GT SCH (17:06)
[2025-05-21] MEDS ORDERED: SODIUM CHLORIDE 0.9% IRRIG BTL 1,000 ML IRRIG ONE (17:09)
[2025-05-21 19:46] VITALS: BP 117/97; PULSE 62; RESP 18; TEMP 97.3; O2SAT 96
[2025-05-21] MEDS: DOCUSATE SODIUM 100 MG/10 ML LIQUID UDCUP GT SCH (20:41)
[2025-05-21] MEDS: ASCORBIC ACID 500 MG TABLET GT SCH (20:41)
[2025-05-21] MEDS: LevETIRAcetam 100 MG/ML 5 ML SOLUTION UDCUP GT SCH (20:42)
[2025-05-21] MEDS: FLUTICASONE PROPIONATE 50 MCG/SPRAY 16 GM NASAL SPRAY NASAL SCH (20:43)
[2025-05-21] MEDS: LATANOPROST 0.005% 2.5 ML OPHTHALMIC SOLUTION OU SCH (20:44)
[2025-05-21] MEDS: MONTELUKAST SODIUM 10 MG TABLET GT SCH (20:47)
[2025-05-21] MEDS ORDERED: OMEPRAZOLE 20 MG CAPSULE GT SCH (21:00)
[2025-05-22 04:22] VITALS: BP 117/62; PULSE 60; RESP 18; TEMP 97.9; O2SAT 97
[2025-05-22] MEDS: LEVOTHYROXINE SODIUM 150 MCG TABLET GT SCH (05:35)
[2025-05-22 06:12] LABS: PLATELET COUNT (AUTO) 221 K/uL (150-450); RED BLOOD CELL COUNT(AUTO) 3.95 MIL/uL (4.00-5.20); RED CELL DISTRIBUTION WIDTH 14.0 % (11.5-14.5); WHITE BLOOD COUNT (AUTO) 4.5 K/uL (4.5-11.0)
[2025-05-22 06:23] LABS: CALCIUM, TOTAL 9.9 mg/dL (8.8-10.5); CREATININE 0.28 mg/dL (0.60-1.30); GLOMERULAR FILTR. RATE CALC > 60 mL/min (>60); GLUCOSE,RANDOM 82 mg/dL (70-110); SODIUM SERUM 136 mmol/L (136-145); UREA NITROGEN, BLOOD 14 mg/dL (7-18)
[2025-05-22 08:16] VITALS: BP 138/69; PULSE 65; RESP 18; TEMP 98; O2SAT 100
[2025-05-22] MEDS: CHOLECALCIFEROL (VIT D3) 2,000 UNITS [50 MCG] TABLET GT SCH (09:11)
[2025-05-22] MEDS: PANTOPRAZOLE SODIUM 40 MG DR TABLET PO SCH (09:11)
[2025-05-22] MEDS: PRAVASTATIN SODIUM 40 MG TABLET GT SCH (09:11)
[2025-05-22 16:58] VITALS: BP 129/75; PULSE 68; RESP 18; TEMP 97.3; O2SAT 99
[2025-05-22 19:18] VITALS: BP 121/81; PULSE 72; RESP 18; TEMP 96.3; O2SAT 100
[2025-05-22] MEDS: ZOLPIDEM TARTRATE 5 MG TABLET PO PRN (20:53)
[2025-05-23 04:05] VITALS: BP 122/75; PULSE 65; RESP 18; TEMP 96.5; O2SAT 99
[2025-05-23 08:26] VITALS: BP 126/90; PULSE 65; RESP 17; TEMP 97.5; O2SAT 100
[2025-05-23 09:03] LABS: PLATELET COUNT (AUTO) 201 K/uL (150-450); RED BLOOD CELL COUNT(AUTO) 3.95 MIL/uL (4.00-5.20); RED CELL DISTRIBUTION WIDTH 13.8 % (11.5-14.5); WHITE BLOOD COUNT (AUTO) 2.7 K/uL (4.5-11.0)
[2025-05-23 09:06] LABS: CALCIUM, TOTAL 9.9 mg/dL (8.8-10.5); CREATININE 0.23 mg/dL (0.60-1.30); GLOMERULAR FILTR. RATE CALC > 60 mL/min (>60); GLUCOSE,RANDOM 82 mg/dL (70-110); SODIUM SERUM 132 mmol/L (136-145); UREA NITROGEN, BLOOD 14 mg/dL (7-18)
[2025-05-23] MEDS ORDERED: IOHEXOL 300 MG/ML 50 ML VIAL ONE (11:17)
[2025-05-23 14:05] LABS: GLUCOMETER DEV NAME(LOC) 6N.2C; GLUCOSE,POINT OF CARE 85 MG/DL (70-110)
[2025-05-23 16:00] VITALS: BP 113/62; PULSE 70; RESP 17; O2SAT 98
[2025-05-23 16:24] VITALS: TEMP 97.3
[2025-05-23 19:34] VITALS: BP 108/70; PULSE 72; RESP 20; TEMP 98.2; O2SAT 100
[2025-05-24 04:10] VITALS: BP 112/79; PULSE 71; RESP 19; TEMP 97.9; O2SAT 99
[2025-05-24 07:20] LABS: PLATELET COUNT (AUTO) 201 K/uL (150-450); RED BLOOD CELL COUNT(AUTO) 3.91 MIL/uL (4.00-5.20); RED CELL DISTRIBUTION WIDTH 13.8 % (11.5-14.5); WHITE BLOOD COUNT (AUTO) 2.5 K/uL (4.5-11.0)
[2025-05-24 07:30] LABS: CALCIUM, TOTAL 10.0 mg/dL (8.8-10.5); CREATININE 0.25 mg/dL (0.60-1.30); GLOMERULAR FILTR. RATE CALC > 60 mL/min (>60); GLUCOSE,RANDOM 110 mg/dL (70-110); SODIUM SERUM 135 mmol/L (136-145); UREA NITROGEN, BLOOD 14 mg/dL (7-18)
[2025-05-24 07:56] VITALS: BP 108/91; PULSE 70; RESP 18; TEMP 97.3; O2SAT 98
[2025-05-24] MEDS: METOCLOPRAMIDE HCL 5 MG/ML 2 ML VIAL IVP ONE (13:05)
[2025-05-24] MEDS: DEXTROSE 5%-LACTATED RINGERS 1,000 ML IV SCH (15:44)
[2025-05-24] MEDS ORDERED: DEXTROSE 50%-WATER 25 GM/50 ML SYRINGE IVP PRN (16:45)
[2025-05-24] MEDS ORDERED: INSULIN LISPRO 100 UNITS/ML SQ PRN (16:45)
[2025-05-24 17:46] LABS: GLUCOMETER DEV NAME(LOC) 6N.2C; GLUCOSE,POINT OF CARE 109 MG/DL (70-110)
[2025-05-24 20:00] VITALS: BP 124/79; PULSE 74; RESP 18; TEMP 97.5; O2SAT 100
[2025-05-25 04:00] VITALS: BP 134/81; PULSE 67; RESP 18; TEMP 97.7; O2SAT 99
[2025-05-25] MEDS: MORPHINE SULFATE 4 MG/ML SYRINGE IVP PRN (04:15)
[2025-05-25 07:05] LABS: GLUCOMETER DEV NAME(LOC) 4E.2; GLUCOSE,POINT OF CARE 113 MG/DL (70-110)
[2025-05-25 07:45] LABS: PLATELET COUNT (AUTO) 178 K/uL (150-450); RED BLOOD CELL COUNT(AUTO) 3.61 MIL/uL (4.00-5.20); RED CELL DISTRIBUTION WIDTH 13.8 % (11.5-14.5); WHITE BLOOD COUNT (AUTO) 2.5 K/uL (4.5-11.0)
[2025-05-25 08:06] LABS: CALCIUM, TOTAL 9.8 mg/dL (8.8-10.5); CREATININE 0.22 mg/dL (0.60-1.30); GLOMERULAR FILTR. RATE CALC > 60 mL/min (>60); GLUCOSE,RANDOM 121 mg/dL (70-110); SODIUM SERUM 136 mmol/L (136-145); UREA NITROGEN, BLOOD 12 mg/dL (7-18)
[2025-05-25 08:40] VITALS: BP 148/75; PULSE 58; RESP 18; TEMP 97.7; O2SAT 99
[2025-05-25] MEDS: PANTOPRAZOLE SODIUM 40 MG/VIAL IVP SCH (11:02)
[2025-05-25] MEDS: LEVOTHYROXINE SODIUM 100 MCG VIAL IVP SCH (11:02)
[2025-05-25] MEDS: LevETIRAcetam 1,000 MG in DEXTROSE 5%-WATER 100 ML IV SCH (11:07)
[2025-05-25] MEDS: MAGNESIUM SULFATE 2 GM/WATER 50 ML IV ONE (11:27)
[2025-05-25 13:11] LABS: GLUCOMETER DEV NAME(LOC) 4E.2; GLUCOSE,POINT OF CARE 96 MG/DL (70-110)
[2025-05-25 16:00] VITALS: BP 137/84; PULSE 76; RESP 18; TEMP 97.6; O2SAT 96
[2025-05-25 17:45] LABS: GLUCOMETER DEV NAME(LOC) 4E.2; GLUCOSE,POINT OF CARE 79 MG/DL (70-110)
[2025-05-25 19:11] VITALS: BP 118/65; PULSE 68; RESP 18; TEMP 97.5; O2SAT 95
[2025-05-25 23:35] LABS: GLUCOMETER DEV NAME(LOC) 4E.2; GLUCOSE,POINT OF CARE 105 MG/DL (70-110)
[2025-05-26 04:15] VITALS: BP 114/85; PULSE 67; RESP 18; TEMP 97.3; O2SAT 95
[2025-05-26 08:00] VITALS: BP 147/72; PULSE 65; RESP 19; TEMP 97.7; O2SAT 100
[2025-05-26] MEDS: METOCLOPRAMIDE HCL 5 MG/ML 2 ML VIAL IVP PRN (08:22)
[2025-05-26 10:06] LABS: GLUCOMETER DEV NAME(LOC) 4E.2; GLUCOSE,POINT OF CARE 86 MG/DL (70-110)
[2025-05-26 11:50] LABS: GLUCOMETER DEV NAME(LOC) 4E.2; GLUCOSE,POINT OF CARE 82 MG/DL (70-110)
[2025-05-26 16:00] VITALS: BP 127/63; PULSE 61; RESP 19; TEMP 94.6; O2SAT 100
[2025-05-26 17:25] LABS: GLUCOMETER DEV NAME(LOC) 4E.2; GLUCOSE,POINT OF CARE 75 MG/DL (70-110)
[2025-05-26 19:46] VITALS: BP 130/90; PULSE 70; RESP 20; TEMP 94.5; O2SAT 100
[2025-05-26 23:00] LABS: GLUCOMETER DEV NAME(LOC) 4E.2; GLUCOSE,POINT OF CARE 110 MG/DL (70-110)
[2025-05-27 05:21] VITALS: BP 105/53; PULSE 103; RESP 20; TEMP 99; O2SAT 92
[2025-05-27 05:22] VITALS: O2SAT 94
[2025-05-27 06:06] LABS: GLUCOMETER DEV NAME(LOC) 4E.2; GLUCOSE,POINT OF CARE 84 MG/DL (70-110)
[2025-05-27 08:12] VITALS: BP 100/82; PULSE 96; RESP 18; TEMP 97.5; O2SAT 95
[2025-05-27] MEDS ORDERED: SODIUM CHLORIDE 0.9% 500 ML IV ONE (10:06)
[2025-05-27] MEDS: CLINDAMYCIN 300 MG/D5% WATER 50 ML IV SCH (11:33)
[2025-05-27 11:41] LABS: GLUCOMETER DEV NAME(LOC) 4E.2; GLUCOSE,POINT OF CARE 89 MG/DL (70-110)
[2025-05-27 12:15] LABS: CALCIUM, TOTAL 9.3 mg/dL (8.8-10.5); CREATININE 0.38 mg/dL (0.60-1.30); GLOMERULAR FILTR. RATE CALC > 60 mL/min (>60); GLUCOSE,RANDOM 102 mg/dL (70-110); SODIUM SERUM 137 mmol/L (136-145); UREA NITROGEN, BLOOD 8 mg/dL (7-18)
[2025-05-27] MEDS ORDERED: [UNRECOGNIZED DRUG - CODE] IV (13:41)
[2025-05-27 16:00] VITALS: BP 115/65; PULSE 84; RESP 20; TEMP 97.9; O2SAT 100
[2025-05-28] MEDS ORDERED: ALENDRONATE SODIUM 70 MG TABLET PO SCH (06:30)
== END 2025-05-27 15:55 | DRG 393 ==
LOC: EMS 10:20 → EDH 13:05 → 6S 14:40 → 4E 05-24 17:15
PROVIDERS: ADMIT Internal Medicine; ATTEND Internal Medicine
PROC: 0DHA3UZ Insertion of Feeding Device into Jejunum, Percutaneous Approach (ICD-10-PCS; principal; 2025-05-23)
PROC: BD16ZZZ Fluoroscopy of Upper GI and Small Bowel (ICD-10-PCS; 2025-05-23)
DX: K94.23 Gastrostomy malfunction (principal); J69.0 Pneumonitis due to inhalation of food and vomit; R53.2 Functional quadriplegia; R62.7 Adult failure to thrive; F03.94 Unspecified dementia, unspecified severity, with anxiety; E03.9 Hypothyroidism, unspecified; I10 Essential (primary) hypertension; J45.909 Unspecified asthma, uncomplicated; E66.9 Obesity, unspecified; G89.29 Other chronic pain; K21.9 Gastro-esophageal reflux disease without esophagitis; M47.817 Spondylosis without myelopathy or radiculopathy, lumbosacral region; R20.2 Paresthesia of skin; Y83.8 Other surgical procedures as the cause of abnormal reaction of the patient, or of later complication, without mention of misadventure at the time of the procedure; Y82.8 Other medical devices associated with adverse incidents; E78.00 Pure hypercholesterolemia, unspecified; M81.0 Age-related osteoporosis without current pathological fracture; Z88.0 Allergy status to penicillin; Z88.2 Allergy status to sulfonamides; Z88.3 Allergy status to other anti-infective agents; Z68.32 Body mass index [BMI] 32.0-32.9, adult
CPT/HCPCS: 71045; 74018; 80048; 82962; 83735; 84484; 85025; 87081; 99285; G0378; J0712; J1644; J2270; J2470; J2765; J3475; J3490; J7040; J7060; Q9967; 36415-L1; 36415-TC